=== PATIENT | female | born 1945 | race Caucasian/White ===

== ENCOUNTER 2020-09-14 19:03 | Inpatient (IN) ==
[2020-09-14 19:43] LABS: Basophils # (auto) 0.01 K/uL (0-0.2); Basophils % (auto) 0.2 %; Hematocrit (blood only) 37.1 % (37-47); Hemoglobin 13.1 g/dL (12.0-16.0); Immature Granulocytes # (auto) 0.03 K/uL (0.00-0.02); Immature Granulocytes % (auto) 0.6 %; Lymphocytes # (auto) 0.57 K/uL (1.2-3.4); Lymphocytes % (auto) 10.6 %; Mean Corpuscular Hemoglobin 29.8 pg (25-34); Mean Corpuscular Hgb Conc 35.3 g/dL (32-36); Mean Corpuscular Volume 84.5 fL (80-100); Mean Platelet Volume 12.8 fL (7.4-10.4); Monocytes # (auto) 0.33 K/uL (0.11-0.59); Monocytes % (auto) 6.1 %; Neutrophils # (auto) 4.46 K/uL (1.4-6.5); Neutrophils % (auto) 82.5 %; Platelet Count 184 K/uL (130-400); RDW Coefficient of Variation 14.1 % (11.5-14.5); RDW Standard Deviation 44.2 fL (36.4-46.3); Red Blood Count 4.39 M/uL (4.2-5.4)
--- NOTE | 2020-09-14 19:51 | Emergency Department Note ---
History of Present Illness General Chief complaint: Flu Like Symptoms Stated complaint: COVID + Time Seen by Provider: 09/14/20 19:37 Source: patient History of Present Illness Provider complaint: Flulike symptoms Onset (ago): day(s) Location: head and chest Severity: moderate Pain Consistency: + intermittent Quality: + other (Coughing, weak and body aches) Relieved By: + none Associated symptoms: + cough, + headaches (Now resolved), + malaise and + weakness; no chest pain, no fever/chills, no nausea/vomiting and no shortness of breath This is a 75-year-old female presents with flulike symptoms for approximately 10 days. She was diagnosed with COVID-19 9 days ago. She complains of a nonproductive cough, loss of taste or smell, malaise, body aches and generalized weakness. She does not appear to be getting any better and so she came in for evaluation. She denies any chest pain or shortness of breath or upper back opal n. She has had no leg swelling or pain. She denies any abdominal pain, vomiting, diarrhea or urinary symptoms. She does state that she had a headache but that is now resolved. Home Medications Medication Instructions Recorded Confirmed Type amlodipine-benazepril 1 cap PO DAILY 09/14/20 09/14/20 History metformin 1,000 mg PO QAM 09/14/20 09/14/20 History metformin 500 mg PO HS 09/14/20 09/14/20 History Allergies Allergy/AdvReac Type Severity Reaction Status Date / Time diltiazem [From Cardizem] Allergy Severe Hives Verified 09/14/20 21:43 Past Med/Surg History Medical History (Updated 09/14/20 @ 22:07 by Salvador Gant MD) Diabetes Hypertension Social History Smoking Status: Never smoker Preferred Language: German Feels Safe at Home: Yes Review of Systems See HPI for pertinent positives & negatives. and A total of 10 systems reviewed and were otherwise negative Physical Exam Vital Signs Vital Signs - 24 hr 09/14/20 19:03 09/14/20 19:05 09/14/20 19:08 Temperature 37.0 C Temperature Source Oral Pulse Rate 104 H Pulse Rate from SpO2 Sensor Respiratory Rate 20 Blood Pressure 189/92 H 189/92 H Blood Pressure Mean 124 124 Blood Pressure Position Standing Pulse Oximetry 86 L 86 L 88 L Oxygen Delivery Method Room Air Nasal Cannula Nasal Cannula Oxygen Flow Rate 0 4 Sepsis Recent Fever Within 48 Hours No Sepsis New/Unexplained Change in Mental Status No Sepsis Action Taken by Nursing No Action Required Oxygen Flow Rate - Titration 4 5 Pulse Oximetry Post Tiitration 88 L 91 09/14/20 19:10 09/14/20 19:30 09/14/20 20:00 Temperature Temperature Source Pulse Rate 99 H 100 H Pulse Rate from SpO2 Sensor Respiratory Rate 23 16 Blood Pressure 173/118 H 178/115 H Blood Pressure Mean 136 136 Blood Pressure Position Pulse Oximetry 91 94 Oxygen Delivery Method Nasal Cannula Nasal Cannula Nasal Cannula Oxygen Flow Rate 5 5 Sepsis Recent Fever Within 48 Hours Sepsis New/Unexplained Change in Mental Status Sepsis Action Taken by Nursing Oxygen Flow Rate - Titration Pulse Oximetry Post Tiitration 09/14/20 20:28 09/14/20 20:30 09/14/20 21:00 Temperature Temperature Source Pulse Rate 100 H 100 H 98 H Pulse Rate from SpO2 Sensor 99 H Respiratory Rate 25 H 27 H 27 H Blood Pressure 170/95 H 169/95 H 161/90 H Blood Pressure Mean 120 119 113 Blood Pressure Position Pulse Oximetry 94 94 94 Oxygen Delivery Method Nasal Cannula Nasal Cannula Nasal Cannula Oxygen Flow Rate 5 5 5 Sepsis Recent Fever Within 48 Hours Sepsis New/Unexplained Change in Mental Status Sepsis Action Taken by Nursing Oxygen Flow Rate - Titration Pulse Oximetry Post Tiitration 09/14/20 21:34 09/14/20 22:00 Temperature Temperature Source Pulse Rate 98 H 96 H Pulse Rate from SpO2 Sensor Respiratory Rate 24 29 H Blood Pressure 164/84 H 157/104 H Blood Pressure Mean 110 121 Blood Pressure Position Pulse Oximetry 91 94 Oxygen Delivery Method Oxygen Flow Rate Sepsis Recent Fever Within 48 Hours Sepsis New/Unexplained Change in Mental Status Sepsis Action Taken by Nursing Oxygen Flow Rate - Titration Pulse Oximetry Post Tiitration Constitutional: Vital signs reviewed. Pulse ox is 88% on room air. She is 94 on 2 L nasal cannula. Eyes: Pupils are equal round reactive to light. Conjunctiva are noninjected. ENT: Pharynx is clear without erythema or exudate. Mucous membranes are slightl y dry. Neck supple without meningeal signs. Respiratory: Clear to auscultation bilaterally. Breath sounds are equal bilaterally. Cardiovascular: Regular rate and rhythm. No rubs or gallops. GI: Soft, nondistended and nontender. Bowel sounds are present. Musculoskeletal: No peripheral edema. No lower extremity tenderness. Integumentary: No cyanosis. or jaundice. Neurological: The patient is awake and alert. No focal deficits. Psychiatric: Normal affect. Not anxious appearing. Course Administered Medications Discontinued Medications Dexamethasone Sodium Phosphate (DexamethasonePf 10 Mg/Ml Vial) 6 mg IV NOW ONE Stop: 09/14/20 22:02 Last Admin: 09/14/20 22:11 Dose: 6 mg Documented by: [id number] Ioversol (Optiray 350 500ml) 108 ml IV ONCE ONE Stop: 09/14/20 21:23 Last Admin: 09/14/20 21:23 Dose: 108 ml Documented by: [id number] Critical Care Time Critical Care Time: Yes Total Critical Care Time: 40 I have personally spent approximately 40 minutes of critical care time in the direct management of this patient. This includes bedside care, interpretation of diagnostic studies, and testing, discussion with consultants, patient, and family members, and other required patient management activities. These minutes are in excess of all separately billable procedures. Medical Decision Making Differential Diagnosis COVID-19, multifocal pneumonia, ARDS, pulmonary embolism, anemia Medical Records Attestation: I reviewed the patient's medical records. I did perform a limited focused review of portions of the patient's old chart on the electronic medical record. The patient has had no recent pertinent visits to this hospital. Home Medications Current Medication List: was personally reviewed by me Laboratory Data Attestation: I reviewed the patient's lab results. Result diagrams: 09/14/20 19:12 09/14/20 19:12 Lab Results 09/14/20 09/14/20 09/14/20 Range/Units 19:12 19:12 19:12 WBC 5.40 (4.8-10.8) K/uL RBC 4.39 (4.2-5.4) M/uL Hgb 13.1 (12.0-16.0) g/dL Hct 37.1 (37-47) % MCV 84.5 (80-100) fL MCH 29.8 (25-34) pg MCHC 35.3 (32-36) g/dL RDW Std Deviation 44.2 (36.4-46.3) fL RDW Coeff of Urmila 14.1 (11.5-14.5) % Plt Count 184 (130-400) K/uL MPV 12.8 H (7.4-10.4) fL Immature Gran % (Auto) 0.6 % Neut % (Auto) 82.5 % Lymph % (Auto) 10.6 % [place] % (Auto) 6.1 % Eos % (Auto) 0.0 % Baso % (Auto) 0.2 % Neut # (Auto) 4.46 (1.4-6.5) K/uL Lymph # (Auto) 0.57 L (1.2-3.4) K/uL [place] # (Auto) 0.33 (0.11-0.59) K/uL Eos # (Auto) 0.00 (0-0.5) K/uL Baso # (Auto) 0.01 (0-0.2) K/uL Immature Gran # (Auto) 0.03 H (0.00-0.02) K/uL PT Cancelled INR Cancelled APTT Cancelled PTT Ratio Cancelled D-Dimer (0-500) ug/L FEU Sodium 129 L (136-145) mmol/L Potassium 3.1 L (3.5-5.1) mmol/L Chloride 97 L (98-107) mmol/L Carbon Dioxide 22 (21-32) mmol/L Anion Gap 10.0 (3-11) BUN 14 (7-18) mg/dl Creatinine 0.68 (0.6-1.2) mg/dl Est Cr Clr Drug Dosing 68.5 ml/min Est GFR ( Amer) 99.2 Est GFR (Non-Af Amer) 85.6 BUN/Creatinine Ratio 20.4 H (10-20) Glucose 233 H (70-99) mg/dl Calcium 8.8 (8.5-10.1) mg/dl Magnesium 1.7 L (1.8-2.4) mg/dl Total Bilirubin 0.5 (0.2-1) mg/dl AST 45 H (15-37) U/L ALT 28 (12-78) U/L Alkaline Phosphatase 66 (45-117) U/L Troponin I < 0.015 (0-0.045) ng/ml C-Reactive Protein 14.40 H (0-0.29) mg/dl Total Protein 7.8 (6.4-8.2) gm/dl Albumin 2.8 L (3.4-5.0) gm/dl Globulin 5.0 H (2.5-4.0) gm/dl Albumin/Globulin Ratio 0.6 L (0.9-2) Specimen Hemolysis 09/14/20 Range/Units 20:17 WBC (4.8-10.8) K/uL RBC (4.2-5.4) M/uL Hgb (12.0-16.0) g/dL Hct (37-47) % MCV (80-100) fL MCH (25-34) pg MCHC (32-36) g/dL RDW Std Deviation (36.4-46.3) fL RDW Coeff of Urmila (11.5-14.5) % Plt Count (130-400) K/uL MPV (7.4-10.4) fL Immature Gran % (Auto) % Neut % (Auto) % Lymph % (Auto) % [place] % (Auto) % Eos % (Auto) % Baso % (Auto) % Neut # (Auto) (1.4-6.5) K/uL Lymph # (Auto) (1.2-3.4) K/uL [place] # (Auto) (0.11-0.59) K/uL Eos # (Auto) (0-0.5) K/uL Baso # (Auto) (0-0.2) K/uL Immature Gran # (Auto) (0.00-0.02) K/uL PT 11.2 INR 1.1 APTT 27.9 PTT Ratio 1.1 D-Dimer 700 H* (0-500) ug/L FEU Sodium (136-145) mmol/L Potassium (3.5-5.1) mmol/L Chloride (98-107) mmol/L Carbon Dioxide (21-32) mmol/L Anion Gap (3-11) BUN (7-18) mg/dl Creatinine (0.6-1.2) mg/dl Est Cr Clr Drug Dosing ml/min Est GFR ( Amer) Est GFR (Non-Af Amer) BUN/Creatinine Ratio (10-20) Glucose (70-99) mg/dl Calcium (8.5-10.1) mg/dl Magnesium (1.8-2.4) mg/dl Total Bilirubin (0.2-1) mg/dl AST (15-37) U/L ALT (12-78) U/L Alkaline Phosphatase (45-117) U/L Troponin I (0-0.045) ng/ml C-Reactive Protein (0-0.29) mg/dl Total Protein (6.4-8.2) gm/dl Albumin (3.4-5.0) gm/dl Globulin (2.5-4.0) gm/dl Albumin/Globulin Ratio (0.9-2) Specimen Hemolysis Imaging Data Radiologist's Impression: Chest X-Ray 09/14/20 19:28 SINGLE VIEW CHEST CLINICAL HISTORY: Dyspnea. FINDINGS: An AP, portable, upright chest radiograph is obtained. No prior studies are available for comparison at the time of dictation. The heart is enlarged noting atherosclerotic calcification of the thoracic aorta. Multifocal airspace consolidation is seen throughout both lungs. No large pleural effusion or pneumothorax is seen. The skeletal structures are osteopenic. The bony thorax is grossly intact. IMPRESSION: Multifocal airspace consolidation is typical for pneumonia. Clinical correlation will be required and radiographic follow-up to resolution is recommended. ACT 112: Negative or not required by law. Electronically signed by: Mathieu Stanely M.D. 09/14/2020 8:18 PM Preliminary Findings Only See Final Report For Complete Findings CTA CHEST: No pulmonary embolus. Bilateral pulmonary infiltrates. Cardiomegaly. Aneurysmal ascending aorta, 4 cm. Small hiatal hernia. Fatty liver. Radiologist: Patricia Valdes M.D. Study ready at 21:39 and initial results transmitted at 21:56 ECG Data Attestation: I personally reviewed and interpreted this ECG as follows: Indication: + weakness Rate (beats per minute): 102 Rhythm: + sinus tachycardia ECG Intervals/blocks: + Right Bundle branch block ECG ST segments: no ST elevation ECG Findings: no PVCs Comparison ECG Date: no prior available MDM Narrative I did evaluate the patient as noted above. The patient is presenting with generalized weakness. She is hypoxemic on presentation here. She was recently diagnosed with COVID-19. She was placed on supplemental oxygen. IV access was established. I did place an order for continuous cardiac monitoring. The monitor showed I sinus tachycardia at a rate of 100 bpm. Did order and personally review the patient's 12-lead EKG as described above. She has a right bundle branch block. I did order and personally reviewed the images of the patient's chest x-ray as described above. She has a multifocal pneumonia. I did order and review the patient's blood work as noted in the electronic medical record. Her white blood cell count is 5.4 but she has lymphopenia. This is consistent with COVID-19. She is not anemic or thrombocytopenic. Her D-dimer is 700. She is hyponatremic and hypokalemic. Glucose is 233. Magnesium 1.7. C-reactive protein is 14. I did order a CT angiogram of the chest. I did review the images myself as well as the radiology report as described above. No pulmonary embolism is noted. She does have bilateral pulmonary infiltrates as well as cardiomegaly and an aneurysm of the ascending aorta measuring 4 cm. T here is also small hiatal hernia and fatty liver. I did discuss the test results with the patient. I did treat her with Decadron 6 mg IV. I did recommend hospitalization for further care and evaluation. I did discuss the case with the hospitalist and case reviewer. Impression & Plan Hypoxemia, Multifocal pneumonia, COVID-19, Acute hyponatremia, Acute hypokalemia, Hypomagnesemia, Hyperglycemia, Aneurysm of ascending aorta Discharge Plan Visit Data Chief Complaint: Flu Like Symptoms Stated Complaint: COVID + ED Provider: Salvador Gant Discharge Problem: Hypoxemia, Multifocal pneumonia, COVID-19, Acute hyponatremia, Acute hypokalemia, Hypomagnesemia, Hyperglycemia, Aneurysm of ascending aorta Patient Disposition: Being Evaluated by Hospitalist Forms Stand Alone Forms: My [facility] Prescriptions Prescriptions: No Action amlodipine-benazepril 5-20 mg capsule 1 cap PO DAILY RF: 0 metformin 1,000 mg tablet 1,000 mg PO QAM RF: 0 metformin 1,000 mg tablet 500 mg PO HS RF: 0 Referrals Referrals: Estela Turpin MD [Primary Care Provider] -
[2020-09-14 20:02] LABS: Alanine Aminotransferase 28 U/L (12-78); Albumin Level 2.8 gm/dl (3.4-5.0); Aspartate Aminotransferase 45 U/L (15-37); BUN Creatinine Ratio 20.4 (10-20); Blood Urea Nitrogen 14 mg/dl (7-18); Calcium 8.8 mg/dl (8.5-10.1); Carbon Dioxide 22 mmol/L (21-32); Chloride 97 mmol/L (98-107); Creatinine Clr Calc Pharmacy 68.5 ml/min; Est GFR (African American) 99.2; Est GFR (Non-African American) 85.6; Glucose 233 mg/dl (70-99); Magnesium 1.7 mg/dl (1.8-2.4); Potassium 3.1 mmol/L (3.5-5.1); Sodium 129 mmol/L (136-145)
[2020-09-14 20:07] LABS: Albumin Globulin Ratio 0.6 (0.9-2); Alkaline Phosphatase 66 U/L (45-117); Bilirubin,Total 0.5 mg/dl (0.2-1); Total Protein 7.8 gm/dl (6.4-8.2); Troponin I < 0.015 ng/ml (0-0.045)
--- NOTE | 2020-09-14 20:19 | XRay Report ---
SINGLE VIEW CHEST CLINICAL HISTORY: Dyspnea. FINDINGS: An AP, portable, upright chest radiograph is obtained. No prior studies are available for c omparison at the time of dictation. The heart is enlarged noting atherosclerotic calcification of th e thoracic aorta. Multifocal airspace consolidation is seen throughout both lungs. No large pleural e ffusion or pneumothorax is seen. The skeletal structures are osteopenic. The bony thorax is grossly i ntact. IMPRESSION: Multifocal airspace consolidation is typical for pneumonia. Clinical correlation will be required and radiographic follow-up to resolution is recommended. ACT 112: Negative or not required by law. Electronically signed by: Mathieu Stanley M.D. 09/14/2020 8:18 PM
[2020-09-14 20:45] LABS: INR 1.1 (0.9-1.1); Partial Thromboplastin Ratio 1.1; Partial Thromboplastin Time 27.9 Seconds (21.0-31.0); Prothrombin Time 11.2 Seconds (9.0-12.0)
[2020-09-14 20:53] LABS: D Dimer 700 ug/L FEU (0-500)
[2020-09-14] MEDS ORDERED: OPTIRAY 350 500ml IV ONE (21:22)
[2020-09-14] MEDS ORDERED: dexAMETHasone**PF** 10 MG/ML VIAL IV ONE (22:01)
[2020-09-15] MEDS ORDERED: ACETAMINOPHEN 325 MG TAB PO PRN (02:12)
[2020-09-15] MEDS ORDERED: MAGNESIUM SULFATE / D5W 1 GM/100 ML BAG IV ONE (02:12)
[2020-09-15] MEDS ORDERED: INSULIN ASPART 100 UNITS/ML 3 ML PEN SC STA (02:12)
[2020-09-15] MEDS ORDERED: POTASSIUM CHLORIDE 20 MEQ/15 ML UDC PO STA (02:12)
[2020-09-15] MEDS ORDERED: NITROGLYCERIN SL 0.4 MG/TAB TAB SL PRN (02:12)
[2020-09-15] MEDS ORDERED: SODIUM CHLORIDE 0.9% 1000ML 1,000 ML IV SCH (02:12)
[2020-09-15 02:25] LABS: Influenza A virus by PCR Negative (Neg); Influenza B virus by PCR Negative (Neg); RSV by PCR Negative (Neg)
[2020-09-15 02:34] LABS: SARS CoV2 RNA(COVID-19) InHosp POSITIVE (Negative)
[2020-09-15] MEDS ORDERED: GLUCOSE 10 TABS/TUBE PO PRN (02:45)
[2020-09-15] MEDS ORDERED: GLUCOSE 40% GEL 15 GM TUBE PO PRN (02:45)
[2020-09-15] MEDS ORDERED: GLUCAGON FOR INJ 1 MG VIAL SQ PRN (02:45)
[2020-09-15] MEDS ORDERED: CARBOHYDRATES FOR HYPOGLYCEMIA PO PRN (02:45)
[2020-09-15] MEDS ORDERED: DEXTROSE 50% 50 ML SYRINGE IV PRN (02:45)
[2020-09-15] MEDS ORDERED: REMDESIVIR 200 MG in SODIUM CHLORIDE 0.9% 210 ML IV ONE (03:00)
--- NOTE | 2020-09-15 05:38 | History and Physical Report ---
DATE OF ADMISSION: 09/15/2020 CHIEF COMPLAINT: COVID pneumonia, hypoxia. HISTORY OF PRESENT ILLNESS: A 75-year-old female with past medical history significant for type 2 diabetes, hypertension, left carotid stenosis, statin intolerance, who lives with her , presents with COVID pneumonia and hypoxia. The patient was having flu-like symptoms about 10 days ago. She seems to have been diagnosed with COVID-19 about 9 days ago. She has cough and initially had loss of sense of smell and taste, since then it has improved, but seemed to have body ache and abdominal pain. She had a few episodes of diarrhea. As she was not getting better, her son advised her to come to the hospital. When she came in, she was saturating at 86%. Currently, she is requiring 15 liters to keep her saturations above 90, but she is resting comfortably and denies any obvious shortness of breath. She still has cough. Denies any headache, no blurred vision, no earache, no runny nose. Appetite is very poor. Denies any chest pain. ALLERGIES: DILTIAZEM. PAST MEDICAL HISTORY: As mentioned above. PAST SURGICAL HISTORY: Biopsy of the right breast, colonoscopy, Pap screen, removal of ovarian cyst, total hysterectomy, right tendon sheath incision. MEDICATIONS: The patient is on amlodipine/benazepril 5/20 mg p.o. daily, metformin 1000 mg in a.m. and 500 mg in p.m., she also seems to be on Lyrica 100 mg p.o. b.i.d., and ezetimibe 10 mg p.o. daily. FAMILY HISTORY: Significant for brother had blood clot, father had lung cancer, mother had lung cancer, brother has hypercholesterolemia. SOCIAL HISTORY: . No smoking, no alcohol, no drug use. REVIEW OF SYSTEMS: As per HPI. Rest of the review of systems negative. PHYSICAL EXAMINATION: GENERAL: The patient is of moderate build, not in acute distress. VITAL SIGNS: Temperature 37, pulse 95, respiratory rate 20, blood pressure 157/106, oxygen 93% on 15 liters OxyMask. HEENT: Pupils equal, round, reactive to light. Oral mucosa dry. NECK: No JVD, no neck masses. CARDIOVASCULAR: S1, S2 heard. Regular rate and rhythm. No murmur, no gallop. RESPIRATORY SYSTEM: Normal AP diameter. No accessory muscle use. No wheezing, no crackles. ABDOMEN: Soft, bowel sounds present, nontender, nondistended. CENTRAL NERVOUS SYSTEM: Cranial nerves II-XII grossly intact, nonfocal. EXTREMITIES: No edema, no erythema. LABORATORY DATA: WBC 5.4, hemoglobin 13.1, hematocrit 37.1, platelets 184. PT 11.2, INR 1.1, APTT 27.9. D-dimer 700. Sodium 129, potassium 3.1, chloride 97, CO2 of 22, BUN 14, creatinine 0.6, serum glucose 233, calcium 8.8, magnesium 1.7, total bilirubin 0.5, AST 45, ALT 28, alkaline phosphatase 66. Troponin I less than 0.015. C-reactive protein 14.4. IMAGING DATA: Chest x-ray is showing multifocal airspace consolidation, it is typical for pneumonia. CT of the chest, no PE, bilateral pulmonary infiltrates, cardiomegaly, aneurysmal ascending aorta 4 cm. EKG: Sinus tachycardia at a rate of 102, right bundle branch block seen. ASSESSMENT AND PLAN: This is a 75-year-old female who presents with COVID-19 pneumonia and hypoxia. 1. COVID-19 pneumonia and hypoxia: The patient has received first dose of Moderna vaccine on 08/20/2020 and has covid symptoms since last 10 days, not getting better, so she came to the hospital. She is requiring 15 liters of oxygen. Meets criteria for remdesivir and prednisone which will be started. Continue oxygen supplementation. Monitor in the tele floor. Follow the remdesivir labs and follow the inflammatory markers. If any concern, will consult pulmonary. 2. Hyponatremia and hypokalemia: Will replace. Getting gentle fluids and also replace potassium. Will follow the repeat labs. 3. Hypomagnesemia: We will replace and follow the labs. 4. History of diabetes: Hold metformin, placed on insulin sliding scale. We will monitor the blood sugars while the patient is getting steroids. If not controlled, will start on Lantus. 5. History of hypertension: Continue amlodipine, benazepril. Monitor the blood pressure. 6. Carotid stenosis, left.7. Statin intolerance, on Zetia. aspirin. 7. Ascending aortic aneurysm, 4 cm, needs followup. 8. Deep venous thrombosis prophylaxis: Lovenox. DISPOSITION: Monitor in the tele floor. Level 1 full code. Expect to discharge home and follow with family doctor. MEKA
[2020-09-15] MEDS: ENOXAPARIN INJ 40 MG/0.4 ML SYR SQ SCH (08:16)
[2020-09-15] MEDS: ENALAPRIL MALEATE 10 MG TAB PO SCH (08:16)
[2020-09-15] MEDS: amLODIPine BESYLATE 5 MG TAB PO SCH (08:16)
[2020-09-15] MEDS: ASPIRIN 81 MG ECTAB PO SCH (08:17)
[2020-09-15] MEDS: EZETIMIBE 10 MG TABLET PO SCH (08:17)
--- NOTE | 2020-09-15 08:20 | CT Scan Report ---
CT ANGIOGRAM OF THE CHEST CLINICAL HISTORY: Shortness of breath. Hypoxia. Covid positive patient. COMPARISON STUDY: Chest x-ray dated 09/14/2020 TECHNIQUE: Following the IV administration of 108 mL of Optiray-320, CT angiogram of the thorax was p erformed from the thoracic inlet to the lung bases utilizing the pulmonary embolus protocol. Images a re reviewed in the axial, sagittal, and coronal planes. IV contrast was administered without complica tion. MIP imaging was performed. A dose lowering technique was utilized adhering to the principles o f ALARA. CT DOSE: 478.54 mGycm FINDINGS: There is hepatic steatosis. There are borderline enlarged mediastinal and hilar lymph nodes, likely reactive. There is mild dilatation of the ascending thoracic aorta which measures 37 mm. There were no pulmonary artery filling defects to indicate acute pulmonary embolism. No pleural effusions are visualized. There are multifocal pulmonary airspace opacities consistent with a multifocal pneumonia. The pattern is typical of Covid 19 pneumonia. There is a small hiatal hernia. IMPRESSION: 1. No evidence of acute pulmonary embolism 2. Multifocal groundglass pulmonary opacities consistent with a multifocal pneumonia. The appearance is typical of Covid 19 pneumonia 3. Hepatic steatosis ACT 112: Negative or not required by law. Electronically signed by: Girma Bhat M.D. 09/15/2020 8:19 AM
[2020-09-15 09:11] LABS: Basophils # (auto) 0.01 K/uL (0-0.2); Basophils % (auto) 0.2 %; Hemoglobin 13.1 g/dL (12.0-16.0); Immature Granulocytes # (auto) 0.04 K/uL (0.00-0.02); Immature Granulocytes % (auto) 0.9 %; Lymphocytes # (auto) 0.44 K/uL (1.2-3.4); Lymphocytes % (auto) 9.6 %; Mean Corpuscular Hemoglobin 29.4 pg (25-34); Mean Corpuscular Hgb Conc 34.5 g/dL (32-36); Mean Corpuscular Volume 85.2 fL (80-100); Mean Platelet Volume 11.6 fL (7.4-10.4); Monocytes # (auto) 0.28 K/uL (0.11-0.59); Monocytes % (auto) 6.1 %; Neutrophils # (auto) 3.79 K/uL (1.4-6.5); Neutrophils % (auto) 83.2 %; Platelet Count 187 K/uL (130-400); RDW Coefficient of Variation 14.3 % (11.5-14.5); RDW Standard Deviation 45.2 fL (36.4-46.3); Red Blood Count 4.46 M/uL (4.2-5.4); White Blood Count 4.56 K/uL (4.8-10.8)
[2020-09-15 09:32] LABS: D Dimer 770 ug/L FEU (0-500)
[2020-09-15 09:46] LABS: Estimated Average Glucose 174 mg/dl; Hemoglobin A1C 7.7 % (4.5-5.6)
[2020-09-15] MEDS: INSULIN ASPART 100 UNITS/ML 3 ML PEN SC SCH ×4 (09:46→20:57)
[2020-09-15 10:00] LABS: BUN Creatinine Ratio 20.7 (10-20); Blood Urea Nitrogen 12 mg/dl (7-18); Calcium 8.7 mg/dl (8.5-10.1); Carbon Dioxide 22 mmol/L (21-32); Chloride 108 mmol/L (98-107); Creatinine Clr Calc Pharmacy 76.9 ml/min; Est GFR (African American) 103.3; Est GFR (Non-African American) 89.2; Glucose 251 mg/dl (70-99); Magnesium 2.4 mg/dl (1.8-2.4); Potassium 3.4 mmol/L (3.5-5.1); Sodium 138 mmol/L (136-145); Troponin I < 0.015 ng/ml (0-0.045)
--- NOTE | 2020-09-15 11:58 | Communication Note ---
Date of Service: September 15, 2020 75-year-old woman with history of DM type II, hypertension, left carotid stenosis who presented with cough and found to have hypoxic respiratory failure secondary to COVID-19 pneumonia. Other history and physical exam as detailed in H&P by Dr. Spencer this morning During my evaluation, patient reports only cough. No shortness of breath at this time reports generalized weakness. Physical exam notable for oxygen mask at 13 L/min saturating 91%, crackles noted posteriorly. Lab work notable for potassium of 3.4, D-dimer of 770, hemoglobin A1c of 7.7, m agnesium of 2.4 Acute hypoxic respiratory failure secondary to COVID-19 pneumonia Hypokalemia Hypomagnesemia Corrected sodium for hyperglycemia on admission was 131. Continue oxygen supplementation Continue remdesivir and dexamethasone Continue potassium repletion and recheck later. Magnesium already repleted and currently normal. Pharm for glycemic management Agree with other plans as detailed in H&P by Dr. Spencer
[2020-09-15] MEDS ORDERED: POTASSIUM CHLORIDE PWD 20 MEQ PACK PO ONE (12:15)
[2020-09-15] MEDS ORDERED: PHARMACY GLYCEMIC MGMT CONSULT PRN (15:29)
[2020-09-15] MEDS ORDERED: INSULIN HUMAN NPH SC SCH (16:30)
[2020-09-15] MEDS ORDERED: NovoLIN-N (NPH) PER UNIT CHARGE SQ SCH (16:30)
[2020-09-15] MEDS ORDERED: dexAMETHasone 6 MG in SYRINGE 0 ML IV SCH ×2 (16:30→22:00)
[2020-09-15] MEDS ORDERED: FUROSEMIDE 40 MG in SYRINGE 0 ML IV ONE (16:55)
--- NOTE | 2020-09-15 18:38 | Electrocardiogram Report ---
Test Reason : Blood Pressure : / mmHG Vent. Rate : 102 BPM Atrial Rate : 102 BPM P-R Int : 188 ms QRS Dur : 148 ms QT Int : 392 ms P-R-T Axes : 026 003 004 degrees QTc Int : 510 ms Sinus tachycardia Possible Left atrial enlargement Right bundle branch block possible Inferior infarct , age undetermined Abnormal ECG No previous ECGs available Confirmed by Serg Hope ([id number]) on 09/15/2020 6:37:50 PM Referred By: REFERRED SELF Confirmed By:Darin Hope
[2020-09-16] MEDS ORDERED: INSULIN ASPART 100 UNITS/ML 3 ML PEN SC SCH (02:00)
[2020-09-16 06:28] LABS: Hematocrit (blood only) 38.5 % (37-47); Hemoglobin 13.3 g/dL (12.0-16.0); Mean Corpuscular Hemoglobin 29.4 pg (25-34); Mean Corpuscular Hgb Conc 34.5 g/dL (32-36); Mean Corpuscular Volume 85.2 fL (80-100); Mean Platelet Volume 12.2 fL (7.4-10.4); Platelet Count 269 K/uL (130-400); RDW Coefficient of Variation 14.5 % (11.5-14.5); RDW Standard Deviation 45.1 fL (36.4-46.3); Red Blood Count 4.52 M/uL (4.2-5.4); White Blood Count 6.81 K/uL (4.8-10.8)
[2020-09-16 07:05] LABS: BUN Creatinine Ratio 34.3 (10-20); C Reactive Protein 7.09 mg/dl (0-0.29); Calcium 9.3 mg/dl (8.5-10.1); Creatinine Clr Calc Pharmacy 77.1 ml/min; Est GFR (African American) 103.3; Est GFR (Non-African American) 89.2; Magnesium 2.1 mg/dl (1.8-2.4)
[2020-09-16 07:06] LABS: Phosphorus 2.1 mg/dl (2.5-4.9)
[2020-09-16] MEDS ORDERED: POTASSIUM PHOS 3 MMOL/1 ML INFUSION IV STA ×2 (07:16→08:12)
[2020-09-16] MEDS ORDERED: POTASSIUM PHOSPHATE 40 MMOL in SODIUM CHLORIDE 0.9% 1000ML 1,000 ML IV ONE (07:30)
[2020-09-16] MEDS ORDERED: POTASSIUM CHLORIDE PWD 20 MEQ PACK PO ONE (08:13)
[2020-09-16] MEDS: amLODIPine BESYLATE 5 MG TAB PO SCH (08:19)
[2020-09-16] MEDS: ENALAPRIL MALEATE 10 MG TAB PO SCH (08:19)
[2020-09-16] MEDS: ASPIRIN 81 MG ECTAB PO SCH (08:19)
[2020-09-16] MEDS: EZETIMIBE 10 MG TABLET PO SCH (08:19)
[2020-09-16] MEDS: ENOXAPARIN INJ 40 MG/0.4 ML SYR SQ SCH (08:20)
[2020-09-16] MEDS: dexAMETHasone 6 MG in SYRINGE 0 ML IV SCH (08:20)
[2020-09-16] MEDS: INSULIN ASPART 100 UNITS/ML 3 ML PEN SC SCH ×4 (08:54→20:43)
[2020-09-16] MEDS: INSULIN HUMAN NPH SC SCH (08:57)
--- NOTE | 2020-09-16 10:03 | Pharmacy Report ---
Pharmacy Glycemic Short Note 2 - Date of Service September 16, 2020 - Glycemic Short BSG Results (Last 24 hours): 09/15/20 09/15/20 09/15/20 09:02 11:51 16:34 Glucose 251 H POC Glucose 254 H 110 H 09/15/20 09/16/20 09/16/20 20:12 02:16 06:14 Glucose 148 H POC Glucose 152 H 167 H 09/16/20 07:20 Glucose POC Glucose 144 H OUTPATIENT ANTIDIABETIC REGIMEN: * Metformin 1000mg PO QAM + 500mg PO QPM * A1c = 7.7% on 09/15/20 ASSESSMENT: * 75yo T2DM female admitted for COVID PNA * Sustained hyperglycemia secondary to stress, illness, and steroids * Pt is maintained on oral antidiabetic agents as an outpatient * Oral agents are not recommended for inpatient use d/t drug interactions, changing PO intake, and difficulty titrating for acute hyper/hypoglycemia. ADA recommends re-initiating outpatient oral agents 1-2 days prior to discharge if/when appropriate if they were held on admission. * Will hold oral agents for admission and utilize SQ basal bolus insulin regimen which is the recommended regimen for inpatient glycemic control. * Will initiate weight based insulin dosing for steroid induced hyperglycemia and titrate based on BSG trends. * NPH insulin is used to counteract the hyperglycemic effect of once daily steroids. NPH should be dosed at the same time that steroid is given * The dose of NPH given is dependent on the steroid dose given * For doses of prednisone equivalent 40mg/day or above NPH dose should be ~0.4 units/kg * NPH dosing above is given in addition to patients basal insulin needs * Typically, patients will also need rapid-acting insulin with meals PLAN FOR INPATIENT GLYCEMIC CONTROL: * Hold outpatient oral diabetes medications * Basal insulin * n/a; will use slightly stressed NPH to cover both basal and steroid needs. 24hr basal may not be needed based on A1c * Steroid induced hyperglycemia * NPH 35 units (0.45 units/kg) * Bolus insulin * NovoLog per scale ACHS or Q6hrs while NPO * Goal Range: Low 110 mg/dL - High 140 mg/dL * Correction Factor: 20 mg/dL/unit * Nutritional / Prandial insulin per carb ratio of 1 unit per 7 grams CHO consumed PLAN FOR DISCHARGE: * A1c = 7.7% on 09/15/20 * Goal A1c <7% based on age/co-morbidities * May consider increasing outpatient metformin to 1000 mg PO BIDM
[2020-09-16] MEDS: SODIUM CHLORIDE 0.9% 10ML FLUSH IV SCH (11:32)
[2020-09-16] MEDS: REMDESIVIR 100 MG in SODIUM CHLORIDE 0.9% 230 ML IV SCH (11:32)
[2020-09-16] MEDS ORDERED: POTASSIUM CHLORIDE PWD 20 MEQ PACK PO SCH (12:15)
--- NOTE | 2020-09-16 12:16 | Hospitalist Progress Note ---
Date of Service September 16, 2020 Assessment & Plan (1) Acute respiratory failure with hypoxia: (2) Multifocal pneumonia: (3) COVID-19: CT PE on admission did not show any PE but showed multifocal groundglass opacities. Patient currently requiring high flow nasal oxygen Continue oxygen supplementation and will wean as tolerated Continue supportive care Incentive spirometry and flutter Continue dexamethasone and remdesivir CRP improved from 15-7 Continue to monitor LFTs Replete electrolytes Give Lasix once repleted. Try to avoid much iVF Trial CPAP at bedtime (4) Acute hypokalemia: (5) Hypomagnesemia: Still hypokalemic with potassium of 3 Continue aggressive repletion Phosphate is also low today. Continue to monitor electrolytes (6) Diabetes: Continue glycemic management per protocol Hold home metformin (7) Hypertension: Continue amlodipine Monitor (8) DVT prophylaxis: Lovenox sq Admission and Anticipated Discharge Date Admission Date: September 15, 2020 Subjective Patient seen and examined Reports cough and shortness of breath Had Diarrhea this morning Review of Systems Constitutional: + fatigue; no fever, no chills and no body aches Eyes: no problem reported Ear, Nose, Mouth, Throat: no problem reported Respiratory: + cough and + dyspnea Cardiovascular: no chest pain, no orthopnea and no lightheadedness Gastrointestinal: + diarrhea/loose stools; no abdominal pain, no nausea and no vomiting Genitourinary: no dysuria, no difficulty urinating and no urinary frequency Musculoskeletal: no myalgia Neurologic: no dizziness, no headache(s) and no confusion Psychiatric: no depression and no anxiety Physical Exam Constitutional: + well hydrated; no acute distress Elderly woman Eyes: PERRL, conjunctivae normal, anicteric sclerae ENMT: external ear and nose normal, oropharynx normal Respiratory: normal respiratory effort; no respiratory distress On high flow nasal cannula Bibasilar crackles Cardiovascular: Rate/Rhythm: regular rate and regular rhythm S1-S2 No pedal edema Gastrointestinal (Abdomen): normal bowel sounds, soft, nontender, no hepatosplenomegaly Musculoskeletal: no cyanosis or clubbing, extremities motor strength 5/5 Neurologic: PERRL, EOMI, accommodation nl, no face palsy, no dysarthria Psychiatric: A+Ox3, euthymic affect Results & Data Results & Data ([facility]) Vital Signs (Past 12 Hours) Vital Signs Temp Pulse Pulse Resp BP Pulse Ox 09/16/20 11:51 36.9 C 84 19 149/86 H 94 09/16/20 11:44 73 20 93 09/16/20 07:32 71 20 90 09/16/20 07:19 36.6 C 70 19 156/87 H 91 09/16/20 07:06 73 09/16/20 03:24 36.5 C 71 19 148/85 H 90 09/16/20 02:46 77 18 89 L Laboratory Results Laboratory Results - last 24 hr 09/15/20 09/15/20 09/15/20 16:34 19:17 20:12 WBC RBC Hgb Hct MCV MCH MCHC RDW Std Deviation RDW Coeff of Urmila Plt Count MPV Sodium Potassium 3.4 L Chloride Carbon Dioxide Anion Gap BUN Creatinine Est Cr Clr Drug Dosing Est GFR ( Amer) Est GFR (Non-Af Amer) BUN/Creatinine Ratio Glucose POC Glucose 110 H 152 H Calcium Phosphorus Magnesium AST ALT C-Reactive Protein Procalcitonin 09/16/20 09/16/20 09/16/20 02:16 06:14 06:14 WBC 6.81 RBC 4.52 Hgb 13.3 Hct 38.5 MCV 85.2 MCH 29.4 MCHC 34.5 RDW Std Deviation 45.1 RDW Coeff of Urmila 14.5 Plt Count 269 MPV 12.2 H Sodium 137 Potassium 3.0 L Chloride 107 Carbon Dioxide 22 Anion Gap 8.0 BUN 21 H D Creatinine 0.60 Est Cr Clr Drug Dosing 77.1 Est GFR ( Amer) 103.3 Est GFR (Non-Af Amer) 89.2 BUN/Creatinine Ratio 34.3 H Glucose 148 H POC Glucose 167 H Calcium 9.3 Phosphorus 2.1 L Magnesium 2.1 AST 30 ALT 25 C-Reactive Protein 7.09 H Procalcitonin 09/16/20 09/16/20 09/16/20 06:14 07:20 12:24 WBC RBC Hgb Hct MCV MCH MCHC RDW Std Deviation RDW Coeff of Urmila Plt Count MPV Sodium Potassium Chloride Carbon Dioxide Anion Gap BUN Creatinine Est Cr Clr Drug Dosing Est GFR ( Amer) Est GFR (Non-Af Amer) BUN/Creatinine Ratio Glucose POC Glucose 144 H 224 H Calcium Phosphorus Magnesium AST ALT C-Reactive Protein Procalcitonin < 0.05
[2020-09-16] MEDS: POT PHOSPHATE MONOBASIC W/ SOD TAB PO SCH ×3 (14:24→20:18)
[2020-09-16] MEDS ORDERED: FUROSEMIDE 40 MG in SYRINGE 0 ML IV ONE (16:00)
[2020-09-16] MEDS ORDERED: MELATONIN 3 MG TAB PO PRN (23:44)
[2020-09-17 06:34] LABS: Hematocrit (blood only) 38.1 % (37-47); Hemoglobin 13.3 g/dL (12.0-16.0); Mean Corpuscular Hemoglobin 29.6 pg (25-34); Mean Corpuscular Hgb Conc 34.9 g/dL (32-36); Mean Corpuscular Volume 84.9 fL (80-100); Mean Platelet Volume 11.8 fL (7.4-10.4); Platelet Count 334 K/uL (130-400); RDW Coefficient of Variation 14.5 % (11.5-14.5); RDW Standard Deviation 45.4 fL (36.4-46.3); Red Blood Count 4.49 M/uL (4.2-5.4); White Blood Count 8.64 K/uL (4.8-10.8)
[2020-09-17 07:14] LABS: BUN Creatinine Ratio 36.4 (10-20); Calcium 8.5 mg/dl (8.5-10.1); Creatinine Clr Calc Pharmacy 80.1 ml/min; Est GFR (African American) 104.5; Est GFR (Non-African American) 90.2; Magnesium 1.8 mg/dl (1.8-2.4); Phosphorus 4.1 mg/dl (2.5-4.9); Potassium 2.8 mmol/L (3.5-5.1)
[2020-09-17] MEDS: POTASSIUM CHLORIDE PWD 20 MEQ PACK PO SCH (08:15)
[2020-09-17] MEDS: POTASSIUM CHLORIDE / WTR 10 MEQ/100 ML PLCT IV SCH ×4 (08:16→12:05)
[2020-09-17] MEDS: POT PHOSPHATE MONOBASIC W/ SOD TAB PO SCH (08:18)
[2020-09-17] MEDS: ENALAPRIL MALEATE 10 MG TAB PO SCH (08:19)
[2020-09-17] MEDS: ENOXAPARIN INJ 40 MG/0.4 ML SYR SQ SCH (08:20)
[2020-09-17] MEDS: ASPIRIN 81 MG ECTAB PO SCH (08:20)
[2020-09-17] MEDS: EZETIMIBE 10 MG TABLET PO SCH (08:22)
[2020-09-17] MEDS: amLODIPine BESYLATE 5 MG TAB PO SCH (08:22)
--- NOTE | 2020-09-17 08:50 | Pharmacy Report ---
Pharmacy Glycemic Short Note 2 - Date of Service September 17, 2020 - Glycemic Short BSG Results (Last 24 hours): 09/16/20 09/16/20 09/16/20 12:24 16:39 20:16 Glucose POC Glucose 224 H 130 H 185 H 09/17/20 09/17/20 06:14 07:31 Glucose 104 H POC Glucose 103 H OUTPATIENT ANTIDIABETIC REGIMEN: * Metformin 1000mg PO QAM + 500mg PO QPM * A1c = 7.7% on 09/15/20 ASSESSMENT: 09/17: * BSGs yesterday of 144, 224, 130, and 185 mg/dL * Patient received 53 units of insulin (35 units of NPH and 18 units of prandial/correctional) * Fasting BSG of 103 mg/dL this morning * Continues on dexamethasone 6 mg IV daily - will continue NPH 35 units SC daily * Will continue current weight-based stress of 3 Novolog 09/16: * 75yo T2DM female admitted for COVID PNA * Sustained hyperglycemia secondary to stress, illness, and steroids * Pt is maintained on oral antidiabetic agents as an outpatient * Oral agents are not recommended for inpatient use d/t drug interactions, changing PO intake, and difficulty titrating for acute hyper/hypoglycemia. ADA recommends re-initiating outpatient oral agents 1-2 days prior to discharge if/when appropriate if they were held on admission. * Will hold oral agents for admission and utilize SQ basal bolus insulin regimen which is the recommended regimen for inpatient glycemic control. * Will initiate weight based insulin dosing for steroid induced hyperglycemia and titrate based on BSG trends. * NPH insulin is used to counteract the hyperglycemic effect of once daily steroids. NPH should be dosed at the same time that steroid is given * The dose of NPH given is dependent on the steroid dose given * For doses of prednisone equivalent 40mg/day or above NPH dose should be ~0.4 units/kg * NPH dosing above is given in addition to patients basal insulin needs * Typically, patients will also need rapid-acting insulin with meals PLAN FOR INPATIENT GLYCEMIC CONTROL: * Hold outpatient oral diabetes medications * Steroid induced hyperglycemia - continue * NPH 35 units (0.45 units/kg) with IV dexamethasone * Bolus insulin - continue * NovoLog per scale ACHS or Q6hrs while NPO * Goal Range: Low 110 mg/dL - High 140 mg/dL * Correction Factor: 20 mg/dL/unit * Nutritional / Prandial insulin per carb ratio of 1 unit per 7 grams CHO consumed PLAN FOR DISCHARGE: * A1c = 7.7% on 09/15/20 * Goal A1c <7% based on age/co-morbidities * May consider increasing outpatient metformin to 1000 mg PO BIDM
[2020-09-17] MEDS: INSULIN ASPART 100 UNITS/ML 3 ML PEN SC SCH ×4 (08:54→22:04)
[2020-09-17] MEDS ORDERED: LORazepam 0.5 MG TAB PO PRN (08:59)
[2020-09-17] MEDS: INSULIN HUMAN NPH SC SCH (09:04)
[2020-09-17] MEDS: dexAMETHasone 6 MG in SYRINGE 0 ML IV SCH (09:12)
[2020-09-17] MEDS: SODIUM CHLORIDE 0.9% 10ML FLUSH IV SCH (13:34)
[2020-09-17] MEDS: REMDESIVIR 100 MG in SODIUM CHLORIDE 0.9% 230 ML IV SCH (13:35)
--- NOTE | 2020-09-17 14:41 | Hospitalist Progress Note ---
Date of Service September 17, 2020 Assessment & Plan (1) Acute respiratory failure with hypoxia: (2) Multifocal pneumonia: (3) COVID-19: CT PE on admission did not show any PE but showed multifocal groundglass opacities. Currently on nasal cannula at 6 L/min Continue oxygen supplementation Continue to wean down as tolerated Continue supportive care Incentive spirometry and flutter. Continue to prone Continue dexamethasone and remdesivir CRP improved from 15-7 Continue to monitor LFTs Did not tolerate CPAP Machine Guide Base Winder recommendations appreciated We will give another dose of Lasix today after repeating electrolyte (4) Acute hypokalemia: (5) Hypomagnesemia: Still hypokalemic Was repleted yesterday and K came upto 4 but down to 2.8 this morning. Due to diuresis Continue aggressive repletion Magnesium and phosphorus are normal today We will give another dose of Lasix today after potassium repletion (6) Diabetes: Continue glycemic management per protocol Hold home metformin (7) Hypertension: Continue amlodipine Monitor (8) DVT prophylaxis: Lovenox sq Admission and Anticipated Discharge Date Admission Date: September 15, 2020 Subjective Patient seen and examined. Still reporting cough and occasional shortness of breath Was able to self proning this morning Weaned off high flow to nasal cannula 6 L/min Denies any chest pain, palpitations Denies any headache, dizziness Reports diarrhea. Denies nausea, vomiting, abdominal pain Denies dysuria, frequency, urgency Reports weakness Physical Exam Constitutional: + well hydrated; no acute distress Eyes: PERRL, conjunctivae normal, anicteric sclerae ENMT: external ear and nose normal, oropharynx normal Respiratory: normal respiratory effort; no respiratory distress On nasal cannula 6 L/min saturating 93% Mild basilar crackles Cardiovascular: Rate/Rhythm: regular rate and regular rhythm S1-S2, no pedal edema Gastrointestinal (Abdomen): normal bowel sounds, soft, nontender, no hepatosplenomegaly Musculoskeletal: no cyanosis or clubbing, extremities motor strength 5/5 Neurologic: PERRL, EOMI, accommodation nl, no face palsy, no dysarthria Psychiatric: A+Ox3, euthymic affect Results & Data Results & Data ([facility]) Vital Signs (Past 12 Hours) Vital Signs Temp Pulse Pulse Resp BP Pulse Ox 09/17/20 11:34 77 20 99 09/17/20 11:22 36.8 C 72 20 125/81 97 04/19/21 07:36 36.9 C 90 20 153/82 H 90 09/17/20 07:34 88 09/17/20 07:20 90 24 90 09/17/20 04:00 36.9 C 82 20 141/79 H 92 09/17/20 03:47 78 22 92 Laboratory Results Laboratory Results - last 24 hr 09/16/20 09/16/20 09/17/20 16:39 20:16 06:14 WBC RBC Hgb Hct MCV MCH MCHC RDW Std Deviation RDW Coeff of Urmila Plt Count MPV Sodium 141 Potassium 2.8 L D Chloride 108 H Carbon Dioxide 25 Anion Gap 8.0 BUN 21 H Creatinine 0.58 L Est Cr Clr Drug Dosing 80.1 Est GFR ( Amer) 104.5 Est GFR (Non-Af Amer) 90.2 BUN/Creatinine Ratio 36.4 H Glucose 104 H POC Glucose 130 H 185 H Calcium 8.5 Phosphorus 4.1 D Magnesium 1.8 AST 19 ALT 24 09/17/20 09/17/20 09/17/20 06:14 07:31 11:20 WBC 8.64 RBC 4.49 Hgb 13.3 Hct 38.1 MCV 84.9 MCH 29.6 MCHC 34.9 RDW Std Deviation 45.4 RDW Coeff of Urmila 14.5 Plt Count 334 MPV 11.8 H Sodium Potassium Chloride Carbon Dioxide Anion Gap BUN Creatinine Est Cr Clr Drug Dosing Est GFR ( Amer) Est GFR (Non-Af Amer) BUN/Creatinine Ratio Glucose POC Glucose 103 H 150 H Calcium Phosphorus Magnesium AST ALT 09/17/20 15:08 WBC RBC Hgb Hct MCV MCH MCHC RDW Std Deviation RDW Coeff of Urmila Plt Count MPV Sodium Potassium Pending Chloride Carbon Dioxide Anion Gap BUN Creatinine Est Cr Clr Drug Dosing Est GFR ( Amer) Est GFR (Non-Af Amer) BUN/Creatinine Ratio Glucose POC Glucose Calcium Phosphorus Magnesium AST ALT
--- NOTE | 2020-09-17 15:11 | Pulmonary Consultation ---
Date of Consultation September 17, 2020 Assessment & Plan (1) Hypoxemia: (2) Multifocal pneumonia: (3) COVID-19: (4) Acute respiratory failure with hypoxia: CT chest 09/17/2020 personally reviewed: Diffuse bilateral groundglass opacities appreciated mostly peripheral especially in the lower lobes. Insignificant mediastinal lymphadenopathy --Acute hypoxic respiratory failure Secondary to multilobar COVID-19 pneumonia COVID-19 PCR positive 09/15/20, influenza A/B negative Positive lymphopenia CRP 14.4 --> 7.09 Procalcitonin negative Continue with remdesivir for 5 days Continue with dexamethasone for 10 days Continue with incentive spirometry and flutter valve Awake proning will help the patient. The patient is more than 8 L of nasal cannula transition to high flow Plan: In/Out: -2066. Urine output 3500. Patient was saturating 97% on 6 L nasal cannula while being in the right decubitus position. I went down to 4 L and she was able to maintain the saturation 95%. Keep the patient euvolemic to negative balance. I will add guaifenesin 600 mg twice daily. Importance of flutter valve as well as incentive spirometry explained to the p atient. CRP is trending down. Patient is clinically doing better. No indication for Tocilizumab. Pulmonary will follow peripherally. Please call with any questions. Please note the above document was generated using voice recognition software. It may contain grammatical, syntax or spelling errors.Any formal questions or concerns about the content, text or information contained within the body of this dictation should be directly addressed to the provider for clarification. History of Present Illness Attending Physician: Laurie Montes MD History of Present Illness 75-year-old female past medical history of diabetes, hypertension was admitted to the hospital with complaints of worsening shortness of breath Patient was diagnosed with COVID-19 approximately 09/09/2020 Pulmonary were consulted as patient was requiring 70% FiO2 on 30 L high flow At the time of examination patient was on 6 L nasal cannula saturating 97% not in acute distress sleeping in the right decubitus position. Patient stated that she is feeling better compared to when she came to the hospital. Patient denies any chest pain. She has been using incentive spirometer as well as per above. She states she is bringing up phlegm after the use of flutter valve. No hemoptysis. Denies any diarrhea, no dysuria. No fever or chills. No personal or family history of asthma. Social history: Non-smoker, no illicit drug use. Patient used to work as a nurse currently retired. Allergies Allergy/AdvReac Type Severity Reaction Status Date / Time diltiazem [From Cardizem] Allergy Severe Hives Verified 09/14/20 21:43 Home Medications Medication Instructions Recorded Confirmed Type amlodipine-benazepril 1 cap PO DAILY 09/14/20 09/14/20 History metformin 1,000 mg PO QAM 09/14/20 09/14/20 History metformin 500 mg PO HS 09/14/20 09/14/20 History Patient History Medical History (Updated 09/16/20 @ 14:07 by Laurie Montes MD) Diabetes Hypertension Social History Smoking Status: Never smoker Hx Alcohol Use: No Hx Substance Use: No Preferred Language: Ecuadorean Communication Ability: Effective Hvac Designer Required: No Beliefs That Will Affect Care: Congregation Congregation Beliefs: tanja Current Living Situation: Spouse Other Information That Helps Us Care for You: No Feels Safe at Home: Yes Safety Concerns: Feels Safe At This Time Assistive Devices: Oxygen - Continuous Review of Systems Review of Systems: All systems reviewed & are unremarkable except as noted in Subjective Physical Exam Physical Exam: Constitutional: No acute distress HEENT: EOMI, PERRLA Respiratory system: Decreased air entry bilaterally, no wheeze, no rhonchi, positive crackles bilaterally CVS: S1-S2 positive, no murmurs or gallops Abdomen: Soft, nontender, nondistended, positive bowel sounds x4 Extremities: +2 pulses bilaterally radialis/ dorsalis pedis, no cyanosis, no edema Neuro: Awake alert oriented x3 Psych: Normal mood and affect G/U: Positive Gonzalez Skin: no rashes, warm and dry Lymphatic: no cervical or axillary lymphadenopathy Results & Data Results & Data ([facility]) Vital Signs (Past 12 Hours) Vital Signs Temp Pulse Pulse Resp BP Pulse Ox 09/17/20 11:34 77 20 99 09/17/20 11:22 36.8 C 72 20 125/81 97 09/17/20 07:36 36.9 C 90 20 153/82 H 90 09/17/20 07:34 88 09/17/20 07:20 90 24 90 09/17/20 04:00 36.9 C 82 20 141/79 H 92 09/17/20 03:47 78 22 92 09/17/20 06:14 09/17/20 06:14 PG Care Time/CCT Total # of Minutes Spent Total Time Spent with Patient: Total time spent is greater than 50% in coordination of care (as documented) at patient's floor/unit and/or counseling patient: Coding Level of Care Code 94726 Initial Inpt Care Lvl 3 Diagnoses Hypoxemia R09.02 Multifocal pneumonia J18.9 COVID-19 U07.1 Acute respiratory failure with hypoxia J96.01
[2020-09-17] MEDS ORDERED: POTASSIUM CHLORIDE PWD 20 MEQ PACK PO ONE (18:33)
[2020-09-17] MEDS ORDERED: FUROSEMIDE 40 MG in SYRINGE 0 ML IV ONE (18:45)
[2020-09-17] MEDS: guaiFENesin 600 MG TABCR PO SCH (20:42)
[2020-09-18 06:38] LABS: Hematocrit (blood only) 39.6 % (37-47); Hemoglobin 13.5 g/dL (12.0-16.0); Mean Corpuscular Hemoglobin 29.3 pg (25-34); Mean Corpuscular Hgb Conc 34.1 g/dL (32-36); Mean Corpuscular Volume 86.1 fL (80-100); Mean Platelet Volume 11.8 fL (7.4-10.4); Platelet Count 340 K/uL (130-400); RDW Coefficient of Variation 14.5 % (11.5-14.5); White Blood Count 13.94 K/uL (4.8-10.8)
[2020-09-18 07:05] LABS: BUN Creatinine Ratio 31.8 (10-20); Calcium 8.7 mg/dl (8.5-10.1); Creatinine Clr Calc Pharmacy 67.4 ml/min; Est GFR (African American) 98.7; Est GFR (Non-African American) 85.2; Magnesium 1.7 mg/dl (1.8-2.4); Potassium 3.6 mmol/L (3.5-5.1)
[2020-09-18 07:09] LABS: C Reactive Protein 6.98 mg/dl (0-0.29); Phosphorus 2.9 mg/dl (2.5-4.9)
[2020-09-18] MEDS: ASPIRIN 81 MG ECTAB PO SCH (08:04)
[2020-09-18] MEDS: amLODIPine BESYLATE 5 MG TAB PO SCH (08:04)
[2020-09-18] MEDS: ENOXAPARIN INJ 40 MG/0.4 ML SYR SQ SCH (08:04)
[2020-09-18] MEDS: dexAMETHasone 6 MG in SYRINGE 0 ML IV SCH (08:05)
[2020-09-18] MEDS: ENALAPRIL MALEATE 10 MG TAB PO SCH (08:05)
[2020-09-18] MEDS: guaiFENesin 600 MG TABCR PO SCH ×2 (08:05→20:43)
[2020-09-18] MEDS: EZETIMIBE 10 MG TABLET PO SCH (08:05)
[2020-09-18] MEDS: POTASSIUM CHLORIDE PWD 20 MEQ PACK PO SCH (08:05)
[2020-09-18] MEDS: INSULIN ASPART 100 UNITS/ML 3 ML PEN SC SCH ×4 (08:43→21:17)
[2020-09-18] MEDS: INSULIN HUMAN NPH SC SCH (08:44)
[2020-09-18] MEDS ORDERED: MAGNESIUM SULFATE / D5W 1 GM/100 ML BAG IV ONE (10:18)
[2020-09-18] MEDS: SODIUM CHLORIDE 0.9% 10ML FLUSH IV SCH (13:14)
[2020-09-18] MEDS: REMDESIVIR 100 MG in SODIUM CHLORIDE 0.9% 230 ML IV SCH (13:14)
--- NOTE | 2020-09-18 14:59 | Hospitalist Progress Note ---
Date of Service September 18, 2020 Assessment & Plan (1) Acute respiratory failure with hypoxia: (2) Multifocal pneumonia: (3) COVID-19: CT PE on admission did not show any PE but showed multifocal groundglass opacities. Oxygen requirements continues to improve from high flow down to nasal cannula at 3 L/min Currently on nasal cannula at 3L/min Continue oxygen supplementation Continue to wean down as tolerated Continue supportive care Incentive spirometry and flutter. Continue to prone Continue dexamethasone and remdesivir CRP improved from 15->7->6.9 Continue to monitor LFTs Auction Block Clerk recommendations appreciated Patient is -1.7 L in the past 24 hours We will give another dose of Lasix today and monitor electrolytes (4) Acute hypokalemia: (5) Hypomagnesemia: Potassium is 3.6 today Magnesium is 1.7 today Continue aggressive repletion (6) Diabetes: Continue glycemic management per protocol Hold home metformin (7) Hypertension: Continue amlodipine Monitor (8) DVT prophylaxis: Lovenox sq Admission and Anticipated Discharge Date Admission Date: September 15, 2020 Subjective Patient seen and examined. Reports feeling better today. Reports cough. Denies chest pain, shortness of breath Denies headache, dizziness Denies nausea, vomiting, abdominal pain. Still reports loose stool. Had 2 episodes yesterday and today Physical Exam Constitutional: + well hydrated; no acute distress Eyes: PERRL, conjunctivae normal, anicteric sclerae ENMT: external ear and nose normal, oropharynx normal Respiratory: normal respiratory effort; no respiratory distress On 3 L/min nasal oxygen saturating at 93% No basilar crackles noted today Cardiovascular: Rate/Rhythm: regular rate and regular rhythm S1-S2, no pedal edema Gastrointestinal (Abdomen): normal bowel sounds, soft, nontender, no hepatosplenomegaly Musculoskeletal: no cyanosis or clubbing, extremities motor strength 5/5 Neurologic: PERRL, EOMI, accommodation nl, no face palsy, no dysarthria Psychiatric: A+Ox3, euthymic affect Results & Data Results & Data ([facility]) Vital Signs (Past 12 Hours) Vital Signs Temp Pulse Pulse Resp BP Pulse Ox Pulse Ox 09/18/20 11:58 36.5 C 89 22 160/83 H 93 09/18/20 08:00 77 92 09/18/20 07:24 36.8 C 78 20 136/73 90 09/18/20 03:44 36.8 C 81 16 132/64 90 Laboratory Results Laboratory Results - last 24 hr 09/17/20 09/17/20 09/17/20 15:08 16:41 20:41 WBC RBC Hgb Hct MCV MCH MCHC RDW Std Deviation RDW Coeff of Urmila Plt Count MPV Sodium Potassium 4.1 D Chloride Carbon Dioxide Anion Gap BUN Creatinine Est Cr Clr Drug Dosing Est GFR ( Amer) Est GFR (Non-Af Amer) BUN/Creatinine Ratio Glucose POC Glucose 160 H 142 H Calcium Phosphorus Magnesium AST ALT C-Reactive Protein 09/18/20 09/18/20 09/18/20 06:19 06:19 07:21 WBC 13.94 H RBC 4.60 Hgb 13.5 Hct 39.6 MCV 86.1 MCH 29.3 MCHC 34.1 RDW Std Deviation 45.0 RDW Coeff of Urmila 14.5 Plt Count 340 MPV 11.8 H Sodium 140 Potassium 3.6 Chloride 108 H Carbon Dioxide 26 Anion Gap 6.0 BUN 22 H Creatinine 0.69 Est Cr Clr Drug Dosing 67.4 Est GFR ( Amer) 98.7 Est GFR (Non-Af Amer) 85.2 BUN/Creatinine Ratio 31.8 H Glucose 95 POC Glucose 88 Calcium 8.7 Phosphorus 2.9 D Magnesium 1.7 L AST 19 ALT 24 C-Reactive Protein 6.98 H 09/18/20 10:57 WBC RBC Hgb Hct MCV MCH MCHC RDW Std Deviation RDW Coeff of Urmila Plt Count MPV Sodium Potassium Chloride Carbon Dioxide Anion Gap BUN Creatinine Est Cr Clr Drug Dosing Est GFR ( Amer) Est GFR (Non-Af Amer) BUN/Creatinine Ratio Glucose POC Glucose 170 H Calcium Phosphorus Magnesium AST ALT C-Reactive Protein
[2020-09-18] MEDS ORDERED: POTASSIUM CHLORIDE PWD 20 MEQ PACK PO ONE (15:00)
[2020-09-18] MEDS ORDERED: FUROSEMIDE 40 MG in SYRINGE 0 ML IV SCH (15:15)
[2020-09-19 06:44] LABS: Hematocrit (blood only) 40.3 % (37-47); Hemoglobin 13.8 g/dL (12.0-16.0); Mean Corpuscular Hemoglobin 29.4 pg (25-34); Mean Corpuscular Hgb Conc 34.2 g/dL (32-36); Mean Corpuscular Volume 85.7 fL (80-100); Mean Platelet Volume 11.7 fL (7.4-10.4); Platelet Count 345 K/uL (130-400); RDW Coefficient of Variation 14.3 % (11.5-14.5); RDW Standard Deviation 44.7 fL (36.4-46.3)
[2020-09-19 07:18] LABS: BUN Creatinine Ratio 37.6 (10-20); Calcium 8.9 mg/dl (8.5-10.1); Creatinine Clr Calc Pharmacy 71.8 ml/min; Est GFR (African American) 100.7; Est GFR (Non-African American) 86.8; Magnesium 2.1 mg/dl (1.8-2.4); Potassium 3.7 mmol/L (3.5-5.1)
[2020-09-19 07:19] LABS: C Reactive Protein 7.44 mg/dl (0-0.29); Phosphorus 2.8 mg/dl (2.5-4.9)
[2020-09-19] MEDS: INSULIN ASPART 100 UNITS/ML 3 ML PEN SC SCH ×4 (09:38→20:48)
[2020-09-19] MEDS: amLODIPine BESYLATE 5 MG TAB PO SCH (09:57)
[2020-09-19] MEDS: dexAMETHasone 6 MG in SYRINGE 0 ML IV SCH (09:58)
[2020-09-19] MEDS: ASPIRIN 81 MG ECTAB PO SCH (09:58)
[2020-09-19] MEDS: ENALAPRIL MALEATE 10 MG TAB PO SCH (09:58)
[2020-09-19] MEDS: ENOXAPARIN INJ 40 MG/0.4 ML SYR SQ SCH (09:59)
[2020-09-19] MEDS: EZETIMIBE 10 MG TABLET PO SCH (09:59)
[2020-09-19] MEDS: guaiFENesin 600 MG TABCR PO SCH ×2 (09:59→20:47)
[2020-09-19] MEDS: POTASSIUM CHLORIDE PWD 20 MEQ PACK PO SCH (10:00)
[2020-09-19] MEDS: INSULIN HUMAN NPH SC SCH (10:17)
[2020-09-19] MEDS: REMDESIVIR 100 MG in SODIUM CHLORIDE 0.9% 230 ML IV SCH (11:55)
[2020-09-19] MEDS: SODIUM CHLORIDE 0.9% 10ML FLUSH IV SCH (12:22)
--- NOTE | 2020-09-19 17:18 | Hospitalist Progress Note ---
Date of Service September 19, 2020 Assessment & Plan (1) Acute respiratory failure with hypoxia: (2) Multifocal pneumonia: (3) COVID-19: CTA chest on admission showed no PE, but multifocal groundglass opacities. CXR showed multifocal airspace consolidation is typical for pneumonia. Continue dexamethasone and remdesivir Continue Incentive spirometry and flutter and encourage pt to prone Continue to wean off oxygen Continue oxygen supplementation CRP 15->7->6.9, then slightly elevated to 7.44 Continue monitor LFTs while on Remdesivir Pulmonology on board no indication for Tocilizumab. Clinically improves (4) Acute hypokalemia: (5) Hypomagnesemia: Electrolytes stable Continue monitor (6) Diabetes: Continue Novolog sliding scale and and NPH Continue to hold home Metformin dose Pharmacy on board for glycemic management Continue monitor BS (7) Hypertension: Continue amlodipine Monitor (8) DVT prophylaxis: Lovenox sq Admission and Anticipated Discharge Date Admission Date: September 15, 2020 Subjective Pt was seen and examined for SOB due to COVID 19 Lying in bed with no distress Continue to require oxygen supplement Pt said that her breathing continue to improve Denies any chest pain, palpitation, dizziness and fever Review of Systems Review of Systems: All systems reviewed & are unremarkable except as noted in Subjective Physical Exam Physical Exam: General- No acute distress Head- atraumatic Eyes- PERRL, EOMI, ENT- oropharynx clear Neck- supple, no JVD Lungs- Diminished BS Heart- regular rhythm; no murmur Abdomen- normal bowel sounds, soft, nontender Extremities- no calf tenderness Neuro- alert, oriented x 3; PERRL, EOMI; no facial palsy; no dysarthria Skin- warm & dry Results & Data Results & Data ([facility]) Vital Signs (Past 12 Hours) Vital Signs Temp Pulse Pulse Resp BP BP Pulse Ox 09/19/20 15:38 77 09/19/20 11:27 36.4 C L 76 18 125/81 95 09/19/20 08:00 77 09/19/20 07:46 36.7 C 77 18 117/71 92
[2020-09-20 07:02] LABS: Albumin Level 2.7 gm/dl (3.4-5.0); Calcium 9.2 mg/dl (8.5-10.1); Creatinine Clr Calc Pharmacy 69.3 ml/min; Est GFR (African American) 99.7; Potassium 4.1 mmol/L (3.5-5.1)
[2020-09-20 07:07] LABS: Albumin Globulin Ratio 0.6 (0.9-2); Bilirubin,Total 0.7 mg/dl (0.2-1); C Reactive Protein 5.04 mg/dl (0-0.29); Globulin 4.4 gm/dl (2.5-4.0); Total Protein 7.1 gm/dl (6.4-8.2)
[2020-09-20] MEDS: dexAMETHasone 6 MG in SYRINGE 0 ML IV SCH (07:56)
[2020-09-20] MEDS: ENOXAPARIN INJ 40 MG/0.4 ML SYR SQ SCH (08:41)
[2020-09-20] MEDS: ASPIRIN 81 MG ECTAB PO SCH (08:42)
[2020-09-20] MEDS: ENALAPRIL MALEATE 10 MG TAB PO SCH (08:42)
[2020-09-20] MEDS: amLODIPine BESYLATE 5 MG TAB PO SCH (08:42)
[2020-09-20] MEDS: guaiFENesin 600 MG TABCR PO SCH (08:43)
[2020-09-20] MEDS: POTASSIUM CHLORIDE PWD 20 MEQ PACK PO SCH (08:43)
[2020-09-20] MEDS: EZETIMIBE 10 MG TABLET PO SCH (08:43)
--- NOTE | 2020-09-20 08:52 | Pharmacy Report ---
Pharmacy Glycemic Short Note 2 - Date of Service September 20, 2020 - Glycemic Short BSG Results (Last 24 hours): 09/19/20 09/19/20 09/19/20 11:06 15:45 20:36 Glucose POC Glucose 117 H 124 H 128 H 09/20/20 09/20/20 06:16 07:15 Glucose 86 POC Glucose 107 H OUTPATIENT ANTIDIABETIC REGIMEN: * Metformin 1000mg PO QAM + 500mg PO QPM * A1c = 7.7% on 09/15/20 ASSESSMENT: 09/20: * BSGs remain well controlled, yesterday's BSGs of 107, 117, 124, and 128 mg/dL * Received 42 units of insulin (35 units of NPH and 7 units of prandial Novolog) * Fasting BSG of 107 mg/dL this morning * Continues on dexamethasone 6 mg IV daily -> will decrease NPH ~15% today in light of tight control yesterday * Lunch BSG of 245 mg/dL today - may need to increase NPH back to previous dose. Will continue current Novolog parameters as that worked well yesterday 09/17: * BSGs yesterday of 144, 224, 130, and 185 mg/dL * Patient received 53 units of insulin (35 units of NPH and 18 units of prandial/correctional) * Fasting BSG of 103 mg/dL this morning * Continues on dexamethasone 6 mg IV daily - will continue NPH 35 units SC daily * Will continue current weight-based stress of 3 Novolog 09/16: * 75yo T2DM female admitted for COVID PNA * Sustained hyperglycemia secondary to stress, illness, and steroids * Pt is maintained on oral antidiabetic agents as an outpatient * Oral agents are not recommended for inpatient use d/t drug interactions, changing PO intake, and difficulty titrating for acute hyper/hypoglycemia. ADA recommends re-initiating outpatient oral agents 1-2 days prior to discharge if/when appropriate if they were held on admission. * Will hold oral agents for admission and utilize SQ basal bolus insulin regimen which is the recommended regimen for inpatient glycemic control. * Will initiate weight based insulin dosing for steroid induced hyperglycemia and titrate based on BSG trends. * NPH insulin is used to counteract the hyperglycemic effect of once daily steroids. NPH should be dosed at the same time that steroid is given * The dose of NPH given is dependent on the steroid dose given * For doses of prednisone equivalent 40mg/day or above NPH dose should be ~0.4 units/kg * NPH dosing above is given in addition to patients basal insulin needs * Typically, patients will also need rapid-acting insulin with meals PLAN FOR INPATIENT GLYCEMIC CONTROL: * Hold outpatient oral diabetes medications * Steroid induced hyperglycemia - decrease * NPH 30 units (0.4 units/kg) with IV dexamethasone * Bolus insulin - continue * NovoLog per scale ACHS or Q6hrs while NPO * Goal Range: Low 110 mg/dL - High 140 mg/dL * Correction Factor: 15 mg/dL/unit * Nutritional / Prandial insulin per carb ratio of 1 unit per 6 grams CHO consumed PLAN FOR DISCHARGE: * A1c = 7.7% on 09/15/20 * Goal A1c <7% based on age/co-morbidities * May consider increasing outpatient metformin to 1000 mg PO BIDM
[2020-09-20] MEDS: INSULIN ASPART 100 UNITS/ML 3 ML PEN SC SCH ×3 (08:59→17:40)
[2020-09-20] MEDS ORDERED: INSULIN HUMAN NPH SC SCH (09:00)
--- NOTE | 2020-09-20 16:31 | Hospitalist Progress Note ---
Date of Service September 20, 2020 Assessment & Plan (1) Acute respiratory failure with hypoxia: (2) Multifocal pneumonia: (3) COVID-19: CTA chest on admission showed no PE, but multifocal groundglass opacities. CXR showed multifocal airspace consolidation is typical for pneumonia. Completed course of dexamethasone Continue dexamethasone until discharge Continue Incentive spirometry and flutter and encourage pt to prone saturated well on RA CRP 15->7->6.9-> 7.44, 5.04 today Pulmonology on board no indication for Tocilizumab. 2 step exercise done today and pt does not require any oxygen supplement Pt is very anxious to go home today Clinically improves (4) Acute hypokalemia: (5) Hypomagnesemia: Electrolytes stable Continue Potassium supplement Check BMP and magnesium in 1 week (6) Diabetes: Continue Novolog sliding scale and and NPH Continue to hold home Metformin while in patient Pharmacy on board for glycemic management Will increase metformin to 1000mg BID (7) Hypertension: Continue amlodipine Monitor (8) DVT prophylaxis: Lovenox sq Admission and Anticipated Discharge Date Admission Date: September 15, 2020 Subjective Pt was seen and examined for SOB due to COVID 19 saturated well on RA Pt said that her breathing feels better She is very anxious to go home today Denies any chest pain, palpitation, dizziness and fever Review of Systems Review of Systems: All systems reviewed & are unremarkable except as noted in Subjective Physical Exam Physical Exam: General- No acute distress Head- atraumatic Eyes- PERRL, EOMI, ENT- oropharynx clear Neck- supple, no JVD Lungs- Diminished BS Heart- regular rhythm; no murmur Abdomen- normal bowel sounds, soft, nontender Extremities- no calf tenderness Neuro- alert, oriented x 3; PERRL, EOMI; no facial palsy; no dysarthria Skin- warm & dry Results & Data Results & Data ([facility]) Vital Signs (Past 12 Hours) Vital Signs Temp Pulse Pulse Pulse Pulse Pulse Resp 09/20/20 15:54 84 09/20/20 15:09 36.4 C L 79 13 09/20/20 13:26 104 H 91 H 87 09/20/20 12:00 09/20/20 11:33 36.4 C L 78 19 09/20/20 08:00 70 09/20/20 07:45 09/20/20 07:14 36.5 C 74 18 Resp Resp Resp BP Pulse Ox Pulse Ox Pulse Ox 09/20/20 15:54 09/20/20 15:09 141/82 H 95 09/20/20 13:26 20 20 18 89 L 09/20/20 12:00 94 09/20/20 11:33 117/70 96 09/20/20 08:00 09/20/20 07:45 96 09/20/20 07:14 130/75 94 Pulse Ox Pulse Ox 09/20/20 15:54 09/20/20 15:09 09/20/20 13:26 94 94 09/20/20 12:00 09/20/20 11:33 09/20/20 08:00 09/20/20 07:45 09/20/20 07:14
--- NOTE | 2020-09-24 09:03 | Discharge Summary ---
Date of Service September 20, 2020 Admission HPI Per Admitting Provider HISTORY OF PRESENT ILLNESS: A 75-year-old female with past medical history significant for type 2 diabetes, hypertension, left carotid stenosis, statin intolerance, who lives with her , presents with COVID pneumonia and hypoxia. The patient was having flu-like symptoms about 10 days ago. She seems to have been diagnosed with COVID-19 about 9 days ago. She has cough and initially had loss of sense of smell and taste, since then it has improved, but seemed to have body ache and abdominal pain. She had a few episodes of diarrhea. As she was not getting better, her son advised her to come to the hospital. When she came in, she was saturating at 86%. Currently, she is requiring 15 liters to keep her saturations above 90, but she is resting comfortably and denies any obvious shortness of breath. She still has cough. Denies any headache, no blurred vision, no earache, no runny nose. Appetite is very poor. Denies any chest pain. Admission Exam Per Admitting Provider GENERAL: The patient is of moderate build, not in acute distress. VITAL SIGNS: Temperature 37, pulse 95, respiratory rate 20, blood pressure 157/106, oxygen 93% on 15 liters OxyMask. HEENT: Pupils equal, round, reactive to light. Oral mucosa dry. NECK: No JVD, no neck masses. CARDIOVASCULAR: S1, S2 heard. Regular rate and rhythm. No murmur, no gallop. RESPIRATORY SYSTEM: Normal AP diameter. No accessory muscle use. No wheezing, no crackles. ABDOMEN: Soft, bowel sounds present, nontender, nondistended. CENTRAL NERVOUS SYSTEM: Cranial nerves II-XII grossly intact, nonfocal. EXTREMITIES: No edema, no erythema. Principal Diagnosis (1) Acute respiratory failure with hypoxia: (2) Multifocal pneumonia: (3) COVID-19: (4) Acute hypokalemia: (5) Hypomagnesemia: (6) Diabetes: (7) Hypertension: Discharge Exam General- No acute distress Head- atraumatic Eyes- PERRL, EOMI, ENT- oropharynx clear Neck- supple, no JVD Lungs- Diminished BS Heart- regular rhythm; no murmur Abdomen- normal bowel sounds, soft, nontender Extremities- no calf tenderness Neuro- alert, oriented x 3; PERRL, EOMI; no facial palsy; no dysarthria Skin- warm & dry Discharge Data Allergies Allergy/AdvReac Type Severity Reaction Status Date / Time diltiazem [From Cardizem] Allergy Severe Hives Verified 09/14/20 21:43 Consultations 09/14/20 22:01 ED Decision to Admit Stat 09/17/20 08:23 Consult Pulmonology Routine Ordered Studies 09/14/20 20:17 CT angio chest PE protocol Urgent CT ANGIOGRAM OF THE CHEST CLINICAL HISTORY: Shortness of breath. Hypoxia. Covid positive patient. COMPARISON STUDY: Chest x-ray dated 09/14/2020 TECHNIQUE: Following the IV administration of 108 mL of Optiray-320, CT angiogram of the thorax was performed from the thoracic inlet to the lung bases utilizing the pulmonary embolus protocol. Images are reviewed in the axial, sagittal, and coronal planes. IV contrast was administered without complication. MIP imaging was performed. A dose lowering technique was utilized adhering to the principles of ALARA. CT DOSE: 478.54 mGycm FINDINGS: There is hepatic steatosis. There are borderline enlarged mediastinal and hilar lymph nodes, likely reactive. There is mild dilatation of the ascending thoracic aorta which measures 37 mm. There were no pulmonary artery filling defects to indicate acute pulmonary embolism. No pleural effusions are visualized. There are multifocal pulmonary airspace opacities consistent with a multifocal pneumonia. The pattern is typical of Covid 19 pneumonia. There is a small hiatal hernia. IMPRESSION: 1. No evidence of acute pulmonary embolism 2. Multifocal groundglass pulmonary opacities consistent with a multifocal pneumonia. The appearance is typical of Covid 19 pneumonia 3. Hepatic steatosis ACT 112: Negative or not required by law. Electronically signed by: Girma Bhat M.D. 09/15/2020 8:19 AM Dictated: 09/15/20815Transcribed: 09/15/20815 SINGLE VIEW CHEST CLINICAL HISTORY: Dyspnea. FINDINGS: An AP, portable, upright chest radiograph is obtained. No prior studies are available for comparison at the time of dictation. The heart is enlarged noting atherosclerotic calcification of the thoracic aorta. Multifocal airspace consolidation is seen throughout both lungs. No large pleural effusion or pneumothorax is seen. The skeletal structures are osteopenic. The bony thorax is grossly intact. IMPRESSION: Multifocal airspace consolidation is typical for pneumonia. Clinical correlation will be required and radiographic follow-up to resolution is recommended. ACT 112: Negative or not required by law. Electronically signed by: Mathieu Stanley M.D. 09/14/2020 8:18 PM Dictated: 09/14/202016Transcribed: 09/14/202016 Hospital Course (1) Acute respiratory failure with hypoxia: (2) Multifocal pneumonia: (3) COVID-19: CTA chest on admission showed no PE, but multifocal groundglass opacities. CXR showed multifocal airspace consolidation is typical for pneumonia. Completed course of dexamethasone Continue dexamethasone until discharge Continue Incentive spirometry and flutter and encourage pt to prone saturated well on RA CRP 15->7->6.9-> 7.44, 5.04 today Pulmonology on board no indication for Tocilizumab. 2 step exercise done today and pt does not require any oxygen supplement Pt is very anxious to go home today Clinically improves (4) Acute hypokalemia: (5) Hypomagnesemia: Electrolytes stable Continue Potassium supplement Check BMP and magnesium in 1 week (6) Diabetes: Continue Novolog sliding scale and and NPH Continue to hold home Metformin while in patient Pharmacy on board for glycemic management Will increase metformin to 1000mg BID (7) Hypertension: Continue amlodipine Monitor (8) DVT prophylaxis: Lovenox sq Total Time Total Time Spent Total Time Spent (In Minutes): 35 minutes Total Time Includes: Examination of the Patient, Discharge Planning, Medication Reconciliation, Communication With Other Providers and Other Discharge Plan Discharge Items Patient Disposition: Home - Self-Care Reason For Visit: FLU-LIKE SYMPTOMS Discharge Diagnosis: (1) Acute respiratory failure with hypoxia: (2) Multifocal pneumonia: (3) COVID-19: (4) Acute hypokalemia: (5) Hypomagnesemia: (6) Diabetes: (7) Hypertension: Activity: Resume your previous activity Non-emergency contact: Primary Care Provider Call non-emergency contact if: you have any medication questions and your symptoms worsen Follow-up/Referrals: Estela Turpin MD [Primary Care Provider] - (Date & Time 09/25/2020 2:20 PM Provider Estela Turpin MD Department Internal Medicine [facility] PLEASE NOTE THAT THIS IS A TELEPHONE APPOINTMENT. YOUR PHYSICIAN WILL CALL YOU AT THE APPOINTMENT TIME. IF YOU HAVE ANY QUESTIONS REGARDING THIS APPOINTMENT, PLEASE CALL ) Diet: Carb Consistent or DM2 Addtl Attending Provider Instructions: Follow up with your primary care provider Dr. Turpin on 09/25/2020 at 2:20 PM (PLEASE NOTE THAT THIS IS A TELEPHONE APPOINTMENT). Seek medical attention if your symptoms worsening (shortness of breath) Fall precaution Check BMP and magnesium in 1 week to monitor your electrolytes Metformin increased to 1000mg twice a day Continue to wear mask and practice social distance Home Isolation COVID-19 Instructions The following information about Home Isolation is from the CDC Website: https://www.cdc.gov/coronavirus/2019-ncov/hcp/mkvwsdxy-gzztckl-bwkxam.html Stay home except to get medical care People who are mildly ill with COVID-19 are able to isolate at home during their illness. You should restrict activities outside your home, except for getting medical care. Do not go to work, school, or public areas. Avoid using public transportation, ride-sharing, or taxis. Separate yourself from other people and animals in your home People: As much as possible, you should stay in a specific room and away from other people in your home. Also, you should use a separate bathroom, if available. Animals: You should restrict contact with pets and other animals while you are sick with COVID-19, just like you would around other people. Although there have not been reports of pets or other animals becoming sick with COVID-19, it is still recommended that people sick with COVID-19 limit contact with animals until more information is known about the virus. When possible, have another member of your household care for your animals while you are sick. If you are sick with COVID-19, avoid contact with your pet, including petting, snuggling, being kissed or licked, and sharing food. If you must care for your pet or be around animals while you are sick, wash your hands before and after you interact with pets and wear a face mask. Call ahead before visiting your doctor If you have a medical appointment, call the healthcare provider and tell them that you have or may have COVID-19. This will help the healthcare providers office take steps to keep other people from getting infected or exposed. Wear a face mask You should wear a face mask when you are around other people (e.g., sharing a room or vehicle) or pets and before you enter a healthcare providers office. If you are not able to wear a face mask (for example, because it causes trouble breathing), then people who live with you should not stay in the same room with you, or they should wear a face mask if they enter your room. Cover your coughs and sneezes Cover your mouth and nose with a tissue when you cough or sneeze. Throw used tissues in a lined trash can. Immediately wash your hands with soap and water for at least 20 seconds or, if soap and water are not available, clean your hands with an alcohol-based hand boat tester that contains at least 60% alcohol. Clean your hands often Wash your hands often with soap and water for at least 20 seconds, especially after blowing your nose, coughing, or sneezing; going to the bathroom; and before eating or preparing food. If soap and water are not readily available, use an alcohol-based hand boat tester with at least 60% alcohol, covering all surfaces of your hands and rubbing them together until they feel dry. Soap and water are the best option if hands are visibly dirty. Avoid touching your eyes, nose, and mouth with unwashed hands. Avoid sharing personal household items You should not share dishes, drinking glasses, cups, eating utensils, towels, or bedding with other people or pets in your home. After using these items, they should be washed thoroughly with soap and water. Clean all high-touch surfaces everyday High touch surfaces include counters, tabletops, doorknobs, bathroom fixtures, toilets, phones, keyboards, tablets, and bedside tables. Also, clean any surfaces that may have blood, stool, or body fluids on them. Use a household cleaning spray or wipe, according to the label instructions. Labels contain instructions for safe and effective use of the cleaning product including precautions you should take when applying the product, such as wearing gloves and making sure you have good ventilation during use of the product. Monitor your symptoms Seek prompt medical attention if your illness is worsening (e.g., difficulty breathing).Beforeseeking care, call your healthcare provider and tell them that you have, or are being evaluated for, COVID-19. Put on a face mask before you enter the facility. These steps will help the healthcare providers office to keep other people in the office or waiting room from getting infected or exposed. Ask your healthcare provider to call the local or state health department. Persons who are placed under active monitoring or facilitated self- monitoring should follow instructions provided by their local health department or occupational health professionals, as appropriate. When working with your local health department check their available hours. If you have a medical emergency and need to call 911, notify the dispatch personnel that you have, or are being evaluated for COVID-19. If possible, put on a face mask before emergency medical services arrive. Discontinuing home isolation Patients with confirmed COVID-19 should remain under home isolation precautions until the risk of secondary transmission to others is thought to be low. The decision to discontinue home isolation precautions should be made on a [id number] basis, in consultation with healthcare providers and state and [facility] health departments. Coronavirus disease 2019 (COVID-19) is a virus that causes a respiratory illness. It is caused by a coronavirus called 2019 novel coronavirus (2019- nCoV). There are many types of coronavirus. Coronaviruses are a very common cause of bronchitis. They may sometimes cause lung infection(pneumonia). Symptoms can range from mild to severe respiratory illness. These viruses are also foundin some animals. COVID-19 was first found in people in [facility], in late 2019. In 2020, several cases of COVID-19 have been confirmed in the [place] Public health officials are working to find the source. How the virus spreads is not yet fully known. It may be spread through droplets of fluid that a person coughs or sneezes into the air. It may be spread if you touch a surface with virus on it, such as a handle or object, and then touch your mouth. What are the symptoms of COVID-19? Some people have no symptoms or mild symptoms. Symptoms may appear 2 to 14 days after contact with the virus. Symptoms can include: Fever Coughing Trouble breathing What are possible complications from COVID-19? In many cases, this virus can cause infection (pneumonia) in both lungs. In some cases, this can cause . How is COVID-19 diagnosed? Your healthcare provider will ask about your symptoms. He or she will also ask about your recent travel and contact with sick people. Testing for the virus is only done through the [facility]. If yourhealthcare provider thinks you may have COVID- 19, he or she will work with your local health department and the CDC on testing. Follow all instructions from your healthcare provider. COVID-19 is diagnosed by: Nasal and throat swab. A cotton-tipped swab is wiped inside your nose or throat. This is done to check for viruses in your nasal mucus. Sputum culture. A small sample of mucus coughed from your lungs (sputum) is collected if you have a cough. It is checked for the virus. How is COVID-19 treated? There is currently no medicine to treat the virus. Treatment is done to help your body while it fights the virus. This is known as supportive care. Supportive care may include: Pain medicine. These include acetaminophen and ibuprofen. They are used to help ease pain and reduce fever. Bed rest. This helps your body fight the illness. For severe illness, you may need to stay in the hospital. Care during severe illness may include: IV (intravenous) fluids.These are given through a vein to help keep your body hydrated. Oxygen. Supplemental oxygen or ventilation with a breathing machine (ventilator) may be given. This is done to keep enough oxygen in your body. Are you at risk for COVID-19? If youve been to a place where people have been sick with this virus, you are at risk for infection. You are at risk if you: Recently traveled to an affected area Had contact with a sick person who recently traveled to this area Had contact with a person who was diagnosed with COVID-19 How can COVID-19 be prevented? There is no vaccine yet. The best prevention is to not have contact with the virus. The CDC advises that people should not travel to areas where there are COVID-19 outbreaks right now for any reason that is not urgent. To help prevent spreading the infection, wash your hands often, or use an alcohol-basedhand boat tester. If you are in an area with COVID-19: Wash your hands often. Or use an alcohol-based hand boat tester often. Only touch your eyes, nose, or mouth with clean hands. Dont have contact with people who are sick. Follow local instructions about being in public. For example, you may be told to not use public transport for a period of time. Stay away from markets that have live or animals. Wash your hands after touching any animals. Don't touch animals that may be sick. Dont share eating or drinking tools with sick people. Dont kiss someone who is sick. Clean surfaces often with disinfectant. If you were in an area with COVID-19 in the last 14 days: Call your healthcare provider. He or she can talk with local health staff to see what action may be needed. Follow all instructions from your provider. Take your temperature every morning and evening for at least 14 days. This is to check for fever. Keep a record of the readings. Keep watch for symptoms of the virus. Tell your provider right away if you have symptoms. If you were in an area with COVID-19 and have a fever or other symptoms: Dont panic. Keep in mind that other illnesses can cause similar symptoms. Stay away from work, school, and public places. Limit physical contact with family members. Don't kiss anyone or share eating or drinking utensils. Clean surfaces you touch with disinfectant. This is to help prevent the virus from spreading. Call your healthcare provider. Explain that you have been exposed to COVID-19 and have symptoms. Do this before going to any hospital. Wait for instructions. Keep in mind that healthcare staff may wear protective equipment such as masks, gowns, gloves, and eye protection. You may be put in a separate room. This is to prevent the possible virus from spreading. Tell the healthcare staff about recent travel. This includes local travel on public transport. Staff may need to find other people you have been in contact with. Follow all instructions the healthcare staff give you. If you have been diagnosed with COVID-19 Follow all instructions from your healthcare provider. Dont leave your home, except to get medical care. Call your healthcare providers office before going. They can prepare and give you instructions. This will help prevent the virus from spreading. Dont go to work, school, or public areas. Dont use public transport or taxis. Stay away from other people in your home. Have them wear face masks around you. Dont share household items or food. Wear a face mask if you can. This includes at home or in a medical facility. Cover your face with a tissue when you cough or sneeze. Throw the tissue away. Wash your hands. Wash your hands often. Caregivers should: Follow all instructions from healthcare staff. Wear a face mask and protective clothing as advised. Wash hands often. Keep track of the sick persons symptoms. Clean surfaces, fabrics, and laundry thoroughly. Keep other people away from the sick person. When to call your healthcare provider Call your healthcare provider: If youve recently traveled and have symptoms If you have been diagnosed with COVID-19 and your symptoms are worse To learn more To find out more about COVID-19, visit the CDC website at www.cdc.gov/coronavirus/2019-ncov/index.html. [employer]. [address] [place] [address]. All rights reserved. This information is not intended as a substitute for professional medical care. Always follow your healthcare professional's instructions. This information has been adapted from [employer] Pending Studies at Discharge: No Stand-Alone Forms: My [facility] [employer], Smoking Cessation Medications and DC Order Prescriptions: New potassium chloride 10 mEq tablet extended release 10 meq PO DAILY 30 Days Qty: 30 RF: 0 Continued amlodipine-benazepril 5-20 mg capsule 1 cap PO DAILY RF: 0 Changed metformin 1,000 mg tablet 1,000 mg PO BID 30 Days Qty: 60 RF: 0 Discontinued metformin 1,000 mg tablet 500 mg PO HS RF: 0 Discharge Orders: Discharge Order (Routine); Ordered 09/20/20 Ordered By: Angela Garcia/Other Patient Handouts: Managing Type 2 Diabetes, Managing Diabetes: The A1C Test Admission Data Admit Date/Time: 09/15/20 01:14 Attending Provider: Angela Soto Admit Provider: Shahram Spencer Primary Care Provider: Estela Turpin Other Providers: Shahram Spencer ; Jazmine Coleman ; Laurie Montes I. Other Interventions: Discharge Summary Assessment (RN) Last Done: 09/20/20 17:34
== END 2020-09-20 19:05 | disposition home or self-care (01) | DRG 177 ==
LOC: ED 19:03 → 2S 09-15 01:14 → SUATTDRO 09-15 01:14 → 2S 09-15 01:50